=== PATIENT | male | born 1940 | race Caucasian/White ===

== ENCOUNTER 2020-01-06 14:20 | Inpatient (IN) | payer MEDICARE, MEDICAID ==
[~2020-01-06] VITALS: Ht 185.4 cm; Wt 100.0 kg
[~2020-01-06 14:20] MED LIST: MAGN400T28 PO
[2020-01-06 16:24] LABS: BASOPHILS % (AUTO) 0.5 % (0-1); EOSINOPHILS # (AUTO) 0.2 X10'3 (0-0.9); EOSINOPHILS % (AUTO) 2.8 % (0-6); HEMATOCRIT 42.8 % (42.0-52.0); HEMOGLOBIN 14.5 g/dl (14.0-17.9); LYMPHOCYTES # (AUTO) 1.8 X10'3 (1.1-4.8); LYMPHOCYTES % (AUTO) 29.4 % (21-51); MEAN CORPUSCULAR HEMOGLOBIN 33.9 PG (27.0-31.0); MEAN CORPUSCULAR HGB CONC 33.8 g/dL (33.0-36.5); MEAN CORPUSCULAR VOLUME 100.3 FL (78-98); MEAN PLATELET VOLUME 8.1 FL (7.4-10.4); MONOCYTES # (AUTO) 0.1 X10'3 (0-0.9); MONOCYTES % (AUTO) 1.9 % (2-12); NEUTROPHILS # (AUTO) 3.9 X10'3 (1.8-7.7); NEUTROPHILS % (AUTO) 65.4 % (42-75); PLATELET COUNT 169 X10'3 (140-440); RED BLOOD COUNT 4.26 X10'6 (4.70-6.10); RED CELL DISTRIBUTION WIDTH 13.6 % (11.5-14.5)
[2020-01-06 16:32] LABS: ALANINE AMINOTRANSFERASE 48 U/L (12-78); ALBUMIN 3.1 G/DL (3.4-5.0); ALBUMIN/GLOBULIN RATIO 1.1 (1.1-1.5); ALKALINE PHOSPHATASE 103 IU/L (46-116); ANION GAP 8 (8-16); ASPARTATE AMINO TRANSFERASE 34 U/L (10-37); BILIRUBIN,TOTAL 1.2 MG/DL (0.1-1.0); BLOOD UREA NITROGEN 14 MG/DL (7-18); BUN/CREATININE RATIO 15.7 (5.4-32.0); CALCIUM 7.9 MG/DL (8.5-10.1); CHLORIDE 107 MMOL/L (99-107); CREATININE 0.89 MG/DL (0.60-1.10); GLUCOSE 95 MG/DL (70-104); POTASSIUM 3.4 MMOL/L (3.5-5.1); SODIUM 141 MMOL/L (135-145); TOTAL CARBON DIOXIDE 25.7 MMOL/L (24-32); TOTAL PROTEIN 5.9 G/DL (6.4-8.2); eGFR 83 ML/MIN
[2020-01-06 16:37] LABS: TROPONIN I 0.13 NG/ML (0.0-0.05)
[2020-01-06] MEDS ORDERED: aspirin 81mg tab.chew PO ONE (17:05)
[2020-01-06] MEDS ORDERED: magnesium hydroxide 30ml (MOM) UD suspension PO PRN (17:40)
[2020-01-06] MEDS ORDERED: morphine 2 MG/ML inj. syringe IV PRN ×2 (17:40)
[2020-01-06] MEDS ORDERED: mag hydrox/Alum hydrox/simeth 30ml oral suspension PO PRN (17:40)
[2020-01-06] MEDS ORDERED: ondansetron/PF 4mg/2ml inj IV PRN (17:40)
[2020-01-06] MEDS ORDERED: acetaminophen 325mg tablet PO PRN (17:40)
--- NOTE | 2020-01-06 17:41 | NUR ---
Spoke to pt's family regarding pt condition and admission status of pt.
[2020-01-06] MEDS ORDERED: NO HOME MEDS (17:57)
[2020-01-06] MEDS: normal saline 1000ml 1,000 ML IV SCH (17:58)
[2020-01-06] MEDS ORDERED: heparin 10,000 units/1 ML INJ IV PRN (18:00)
[2020-01-06] MEDS ORDERED: heparin 10,000 units/1 ML INJ IV ONE (18:00)
[2020-01-06 18:32] LABS: PARTIAL THROMBOPLASTIN TIME 27 SECONDS (22-32)
[2020-01-06] MEDS: heparin 25,000 UNIT/250ml bag 250 ML IV SCH (19:13)
[2020-01-06] MEDS ORDERED: CITA20TA28 PO (19:29)
[2020-01-06] MEDS ORDERED: LOSA25TA96 PO (19:29)
[2020-01-06] MEDS ORDERED: PHEN-893 PO (19:29)
[2020-01-06] MEDS ORDERED: PSEU30CA2 (19:29)
[2020-01-06 19:30] VITALS: BP 133/57
[2020-01-06 22:00] VITALS: BP 147/72
[2020-01-06] MEDS ORDERED: LORazepam 2 mg/ml vial IV PRN (23:35)
[2020-01-07 01:58] LABS: ALBUMIN 3.3 G/DL (3.4-5.0); ANION GAP 7 (8-16); BLOOD UREA NITROGEN 13 MG/DL (7-18); BUN/CREATININE RATIO 14.1 (5.4-32.0); CALCIUM 8.5 MG/DL (8.5-10.1); CHLORIDE 106 MMOL/L (99-107); CREATININE 0.92 MG/DL (0.60-1.10); GLUCOSE 119 MG/DL (70-104); SODIUM 141 MMOL/L (135-145); TOTAL CARBON DIOXIDE 27.8 MMOL/L (24-32); eGFR 80 ML/MIN
[2020-01-07 02:00] VITALS: BP 153/77
[2020-01-07 02:08] LABS: BASOPHILS # (AUTO) 0.1 X10'3 (0-0.2); EOSINOPHILS # (AUTO) 0.3 X10'3 (0-0.9); EOSINOPHILS % (AUTO) 5.6 % (0-6); HEMATOCRIT 42.3 % (42.0-52.0); HEMOGLOBIN 14.4 g/dl (14.0-17.9); LYMPHOCYTES # (AUTO) 2.5 X10'3 (1.1-4.8); LYMPHOCYTES % (AUTO) 41.9 % (21-51); MEAN CORPUSCULAR VOLUME 100.3 FL (78-98); MEAN PLATELET VOLUME 8.1 FL (7.4-10.4); MONOCYTES # (AUTO) 0.5 X10'3 (0-0.9); MONOCYTES % (AUTO) 9.2 % (2-12); NEUTROPHILS # (AUTO) 2.5 X10'3 (1.8-7.7); NEUTROPHILS % (AUTO) 42.3 % (42-75); PLATELET COUNT 143 X10'3 (140-440); RED BLOOD COUNT 4.22 X10'6 (4.70-6.10); RED CELL DISTRIBUTION WIDTH 13.6 % (11.5-14.5)
[2020-01-07] MEDS: normal saline 1000ml 1,000 ML IV SCH ×2 (04:25→19:48)
--- NOTE | 2020-01-07 06:22 | NUR ---
Problems reprioritized. Patient report given, questions answered & plan of care reviewed with PAT RN.
[2020-01-07 06:30] VITALS: BP 161/83
[2020-01-07 12:00] VITALS: BP 160/89
[2020-01-07] MEDS ORDERED: iohexol 350MG/ML 100ml bottle IV ONE (12:33)
--- NOTE | 2020-01-07 13:16 | NUR ---
DR. MADSEN PAGED: PAGER ID: [phone] MESSAGE: [phone]: BEEM - FYI CTA CHEST (-) PE ACCE [id number]
[2020-01-07] MEDS ORDERED: CITA10TA9 PO (13:18)
[2020-01-07] MEDS ORDERED: LOSA100T57 PO (13:18)
[2020-01-07] MEDS ORDERED: regadenoson 0.4mg/5ml syringe IV PRN (14:25)
[2020-01-07] MEDS ORDERED: metoprolol tartrate 1mg/ml inj IV PRN (14:25)
[2020-01-07] MEDS ORDERED: nitroGLYCERIN 0.4mg SUBLingual tab SL PRN (14:25)
[2020-01-07] MEDS ORDERED: aminophylline 250mg/10ml inj. IV PRN (14:25)
[2020-01-07] MEDS ORDERED: hydrALAZINE 20mg/ml inj. IV PRN (14:50)
[2020-01-07 15:00] VITALS: BP 152/80
--- NOTE | 2020-01-07 15:00 | NUR ---
PATIENT'S B/P SYSTOLIC 170. APPRISED DR. MADSEN OF PATIENT'S B/P; ORDERS RECEIVED AND NOTED. LOSARTAN 100MG PO GIVEN PER ORDER. Addendum: 01/07/20 at 2036 by Rita Grey RN Amended: Links added.
[2020-01-07] MEDS: losartan 50mg tablet PO SCH (15:04)
[2020-01-07] MEDS: aspirin 81mg tablet.DR PO SCH (15:05)
[2020-01-07 16:37] LABS: CHOL/HDL RATIO 4.2 (0.00-4.99); CHOLESTEROL 173 MG/DL (0-200); HDL CHOLESTEROL 41 MG/DL (35-60); LDL CHOLESTEROL 105 MG/DL (50-100); TRIGLYCERIDES 134 MG/DL (20-135)
[2020-01-07 18:00] VITALS: BP 156/77
--- NOTE | 2020-01-07 18:00 | NUR ---
Patient in room MED 316. I have received report from SHWETA BOURGEOIS and had the opportunity to ask questions and assume patient care.
[2020-01-07] MEDS: heparin 25,000 UNIT/250ml bag 250 ML IV SCH (19:51)
--- NOTE | 2020-01-07 20:04 | NUR ---
PAGER ID: [phone] MESSAGE: [id number] EVONNE SHEPHERD HAS EXACERBATED NASAL CONGESTION. TAKES SUDAFED AT HOME OR BENEDRYL OR "FEI". THANKS
[2020-01-07] MEDS: carVEDilol 3.125mg tablet PO SCH (20:05)
[2020-01-07 22:00] VITALS: BP 142/82
[2020-01-07] MEDS: oxymetazoline 15 ML nasal spray NS SCH (22:01)
[2020-01-07] MEDS: diphenhydrAMINE 25mg capsule PO PRN (22:02)
[2020-01-08] VITALS (11 sets, daily range): BP systolic 130–162; BP diastolic 65–89
[2020-01-08] MEDS: normal saline 1000ml 1,000 ML IV SCH (00:38)
[2020-01-08 05:16] LABS: BASOPHILS # (AUTO) 0.1 X10'3 (0-0.2); BASOPHILS % (AUTO) 1.1 % (0-1); EOSINOPHILS # (AUTO) 0.4 X10'3 (0-0.9); EOSINOPHILS % (AUTO) 8.4 % (0-6); HEMATOCRIT 41.9 % (42.0-52.0); HEMOGLOBIN 14.2 g/dl (14.0-17.9); LYMPHOCYTES # (AUTO) 2.1 X10'3 (1.1-4.8); LYMPHOCYTES % (AUTO) 40.8 % (21-51); MEAN CORPUSCULAR HEMOGLOBIN 34.2 PG (27.0-31.0); MEAN CORPUSCULAR VOLUME 100.6 FL (78-98); MEAN PLATELET VOLUME 7.6 FL (7.4-10.4); MONOCYTES # (AUTO) 0.4 X10'3 (0-0.9); MONOCYTES % (AUTO) 8.2 % (2-12); NEUTROPHILS # (AUTO) 2.2 X10'3 (1.8-7.7); NEUTROPHILS % (AUTO) 41.5 % (42-75); PLATELET COUNT 144 X10'3 (140-440); RED BLOOD COUNT 4.16 X10'6 (4.70-6.10); RED CELL DISTRIBUTION WIDTH 13.4 % (11.5-14.5); WHITE BLOOD COUNT 5.2 X10'3 (4.5-11.0)
[2020-01-08] MEDS: heparin 25,000 UNIT/250ml bag 250 ML IV SCH (05:31)
[2020-01-08 05:33] LABS: ALBUMIN 3.4 G/DL (3.4-5.0); ANION GAP 7 (8-16); BLOOD UREA NITROGEN 10 MG/DL (7-18); BUN/CREATININE RATIO 11.1 (5.4-32.0); CALCIUM 8.6 MG/DL (8.5-10.1); CHLORIDE 107 MMOL/L (99-107); GLUCOSE 106 MG/DL (70-104); SODIUM 141 MMOL/L (135-145); TOTAL CARBON DIOXIDE 26.8 MMOL/L (24-32); eGFR 82 ML/MIN
--- NOTE | 2020-01-08 06:29 | NUR ---
Problems reprioritized. Patient report given, questions answered & plan of care reviewed with Ivonne BOURGEOIS.
[2020-01-08 07:52] LABS: MAGNESIUM 2.1 MG/DL (1.5-2.4)
[2020-01-08] MEDS: atorvastatin 20mg tablet PO SCH (08:00)
[2020-01-08] MEDS: carVEDilol 3.125mg tablet PO SCH ×2 (08:00→21:13)
[2020-01-08] MEDS: aspirin 81mg tablet.DR PO SCH (09:56)
[2020-01-08] MEDS: losartan 50mg tablet PO SCH (10:02)
--- NOTE | 2020-01-08 10:10 | NUR ---
Pt transported with Carmen BOURGEOIS from [facility] via Wheelchair and Heparin drip and iv fluids. Addendum: 01/08/20 at 1059 by Raz Kessler RN Amended: Links added.
--- NOTE | 2020-01-08 12:18 | NUR ---
DR. MADSEN PAGED PAGER ID: [phone] MESSAGE: 316: CORA - ED (+)darrin, CARDIO CONSULT? TY ACCE [id number]
--- NOTE | 2020-01-08 13:50 | NUR ---
DR. MADSEN PAGED: PAGER ID: [phone] MESSAGE: [phone]: BEEM - WANTS TO EAT, BUT DE RESULTS NEED CLARIFICATION. NURSE FRANTZ [id number]
[2020-01-08] MEDS: diphenhydrAMINE 25mg capsule PO PRN (17:55)
[2020-01-08] MEDS: oxymetazoline 15 ML nasal spray NS SCH (17:55)
--- NOTE | 2020-01-08 18:00 | NUR ---
Problems reprioritized. Patient report given, questions answered & plan of care reviewed with surjit Morales.
--- NOTE | 2020-01-08 18:22 | NUR ---
Patient in room MED 316. I have received report from Ivonne BOURGEOIS and had the opportunity to ask questions and assume patient care.
[2020-01-09 02:00] VITALS: BP 145/77
[2020-01-09 05:18] LABS: ALBUMIN 3.5 G/DL (3.4-5.0); ANION GAP 5 (8-16); BLOOD UREA NITROGEN 11 MG/DL (7-18); BUN/CREATININE RATIO 11.7 (5.4-32.0); CALCIUM 8.8 MG/DL (8.5-10.1); CHLORIDE 107 MMOL/L (99-107); CREATININE 0.94 MG/DL (0.60-1.10); GLUCOSE 114 MG/DL (70-104); SODIUM 139 MMOL/L (135-145); TOTAL CARBON DIOXIDE 26.9 MMOL/L (24-32); eGFR 78 ML/MIN
[2020-01-09 05:28] LABS: BASOPHILS % (AUTO) 0.8 % (0-1); EOSINOPHILS # (AUTO) 0.4 X10'3 (0-0.9); EOSINOPHILS % (AUTO) 6.9 % (0-6); HEMATOCRIT 41.9 % (42.0-52.0); HEMOGLOBIN 14.3 g/dl (14.0-17.9); LYMPHOCYTES # (AUTO) 1.9 X10'3 (1.1-4.8); LYMPHOCYTES % (AUTO) 35.6 % (21-51); MEAN CORPUSCULAR HEMOGLOBIN 34.2 PG (27.0-31.0); MEAN CORPUSCULAR HGB CONC 34.2 g/dL (33.0-36.5); MEAN PLATELET VOLUME 7.8 FL (7.4-10.4); MONOCYTES # (AUTO) 0.4 X10'3 (0-0.9); MONOCYTES % (AUTO) 7.9 % (2-12); NEUTROPHILS # (AUTO) 2.7 X10'3 (1.8-7.7); NEUTROPHILS % (AUTO) 48.8 % (42-75); PLATELET COUNT 152 X10'3 (140-440); RED BLOOD COUNT 4.19 X10'6 (4.70-6.10); RED CELL DISTRIBUTION WIDTH 13.3 % (11.5-14.5); WHITE BLOOD COUNT 5.4 X10'3 (4.5-11.0)
[2020-01-09 06:00] VITALS: BP 139/73
--- NOTE | 2020-01-09 06:30 | NUR ---
Problems reprioritized. Patient report given, questions answered & plan of care reviewed with Ivonne BOURGEOIS.
--- NOTE | 2020-01-09 07:02 | NUR ---
Patient in room MED 316. I have received report from surjit Morales and had the opportunity to ask questions and assume patient care.
[2020-01-09] MEDS: aspirin 81mg tablet.DR PO SCH (08:28)
[2020-01-09] MEDS: losartan 50mg tablet PO SCH (08:28)
[2020-01-09] MEDS: atorvastatin 20mg tablet PO SCH (08:28)
[2020-01-09] MEDS: carVEDilol 3.125mg tablet PO SCH (08:28)
[2020-01-09] MEDS ORDERED: COR3.125T PO (09:58)
[2020-01-09] MEDS ORDERED: ASPI-1071 PO (09:58)
[2020-01-09] MEDS ORDERED: ATOR20TA66 PO (09:58)
[2020-01-09 10:00] VITALS: BP 156/79
--- NOTE | 2020-01-09 13:30 | NUR ---
reviewed all discharge instructions,including need for f/u appts,prescriptions faxed to diana lugo @ [place] leela robledo from [facility],site clear.pt discharged home with all belongings via wheelchair
== END 2020-01-09 13:17 | disposition home or self-care (01) | DRG 204 ==
LOC: ER 14:21 → ED HOLD 17:39 → UNDOADMIN 17:41 → ED HOLD 17:41 → MED 3N 19:42 → ED HOLD 19:42
PROVIDERS: ADMIT Family Medicine; ATTEND Family Medicine
PROC: 4A02XM4 Measurement of Cardiac Total Activity, External Approach (ICD-10-PCS; principal; 2020-01-08)
PROC: 3E033HZ Introduction of Radioactive Substance into Peripheral Vein, Percutaneous Approach (ICD-10-PCS; 2020-01-08)
DX: R06.02 Shortness of breath (principal); R79.89 Other specified abnormal findings of blood chemistry; E78.5 Hyperlipidemia, unspecified; F41.9 Anxiety disorder, unspecified; I10 Essential (primary) hypertension; I45.10 Unspecified right bundle-branch block; K21.9 Gastro-esophageal reflux disease without esophagitis; Z87.11 Personal history of peptic ulcer disease
CPT/HCPCS: 36415; 71275; 78452; 80048; 80053; 80061; 83735; 83880; 84484; 85025; 85610; 85730; 87081; 93005; 93017; 93306; 99285; A9500; G0378; J1644; J2060; J2785; J7030; Q0163; Q9967

== ENCOUNTER 2020-03-13 06:15 | Day surgery (SDC) | payer MEDICARE, MEDICAID ==
[2020-03-07 13:58] LABS: BASOPHILS # (AUTO) 0.1 X10'3 (0-0.2); BASOPHILS % (AUTO) 0.8 % (0-1); EOSINOPHILS # (AUTO) 0.5 X10'3 (0-0.9); EOSINOPHILS % (AUTO) 5.3 % (0-6); LYMPHOCYTES # (AUTO) 2.8 X10'3 (1.1-4.8); LYMPHOCYTES % (AUTO) 30.4 % (21-51); MEAN CORPUSCULAR HEMOGLOBIN 34.4 PG (27.0-31.0); MEAN CORPUSCULAR HGB CONC 34.5 g/dL (33.0-36.5); MEAN CORPUSCULAR VOLUME 99.7 FL (78-98); MEAN PLATELET VOLUME 7.6 FL (7.4-10.4); MONOCYTES # (AUTO) 0.7 X10'3 (0-0.9); MONOCYTES % (AUTO) 7.4 % (2-12); NEUTROPHILS # (AUTO) 5.1 X10'3 (1.8-7.7); NEUTROPHILS % (AUTO) 56.1 % (42-75); PRE OP HEMATOCRIT 44.8 % (42.0-52.0); PRE OP HEMOGLOBIN 15.5 g/dL (14.0-17.9); PRE OP PLATELET COUNT 216 X10'3 (140-440); RED BLOOD COUNT 4.49 X10'6 (4.70-6.10); RED CELL DISTRIBUTION WIDTH 12.9 % (11.5-14.5)
[2020-03-07 14:11] LABS: PRE OP INR 1.1 INR; PRE OP PROTIME 10.9 SECONDS (9.0-12.0)
[2020-03-07 14:15] LABS: ALBUMIN/GLOBULIN RATIO 1.1 (1.1-1.5); ALKALINE PHOSPHATASE 131 IU/L (46-116); BLOOD UREA NITROGEN 16 MG/DL (7-18); BUN/CREATININE RATIO 19.3 (5.4-32.0); CHLORIDE 103 MMOL/L (99-107); CREATININE 0.83 MG/DL (0.60-1.10); PRE OP ALT 50 U/L (30-65); PRE OP ANION GAP 9 (8-16); PRE OP AST 27 U/L (10-37); PRE OP BILIRUB, TOTAL 0.7 MG/DL (0.0-1.0); PRE OP GLUCOSE 96 MG/DL (70-104); PRE OP POTASSIUM 4.3 MMOL/L (3.4-5.1); PRE OP SODIUM 136 MMOL/L (135-145); TOTAL CARBON DIOXIDE 24.1 MMOL/L (24-32); TOTAL PROTEIN 7.7 G/DL (6.4-8.2); eGFR 90 ML/MIN
[2020-03-07 15:26] LABS: PLATELET FUNCTION (ADP) 127 SECONDS (63-104)
[2020-03-13] VITALS (24 sets, daily range): BP systolic 136–180; BP diastolic 75–99
[~2020-03-13] VITALS: Ht 185.4 cm; Wt 95.0 kg
[~2020-03-13 06:15] MED LIST changes: +ACET-2119 PO; +CLOT15CR73 TP; +IRON PO; +LORA5TAB9 PO; +LOSA100T57 PO; -MAGN400T28 PO; +NAS0.025NS NS; +NIAC500C12 PO; +ROPI0.252 PO; +SODI30SP3 BOTHNARES; +[UNRECOGNIZED DRUG - OTHER] NS; +famotidine 20mg tablet PO ONE; +ringers solution, lacted 1,000 ML IV SCH
[2020-03-13] MEDS ORDERED: LIDOcaine 1% (10mg/ml) 2ml vial ONE (06:45)
[2020-03-13] MEDS ORDERED: oxymetazoline 15 ML nasal spray NS ONE ×2 (06:48→07:00)
[2020-03-13] MEDS ORDERED: cocaine 4% topical solution 4ml bottle ONE (06:48)
[2020-03-13] MEDS ORDERED: bacitracin 15gm ointment TP ONE (06:48)
[2020-03-13] MEDS ORDERED: methylPREDNISolone acetate 80mg/ml inj**IM only ONE (06:52)
[2020-03-13] MEDS ORDERED: cefTAZidime 1gm inj ONE (06:52)
[2020-03-13] MEDS ORDERED: LIDOcaine 1% w/epiNEPHrine 1:200,000 30ml vial ONE (06:52)
[2020-03-13] MEDS ORDERED: BUPIVAcaine 0.5% W/EPI /PF 30ml vial ONE (06:55)
[2020-03-13] MEDS ORDERED: ringers solution, lacted 1,000 ML IV SCH (06:55)
[2020-03-13] MEDS ORDERED: morphine 2 MG/ML inj. syringe IV PRN (06:55)
[2020-03-13] MEDS ORDERED: ondansetron/PF 4mg/2ml inj IV PRN (06:55)
[2020-03-13] MEDS ORDERED: fentaNYL/PF 50MCG/1 ML 2ML syringe IV PRN ×2 (06:55)
[2020-03-13] MEDS ORDERED: LIDOcaine 1% W/epiNEPHrine 1:100,000 20ml vial ONE (07:18)
[2020-03-13] MEDS ORDERED: midazolam 2 mg/2 ml injection ONE ×2 (07:53)
[2020-03-13] MEDS ORDERED: fentaNYL/PF 50MCG/1 ML 2ML syringe ONE (07:53)
[2020-03-13] MEDS ORDERED: propofol inj 20 ML IV ONE (07:57)
[2020-03-13] MEDS ORDERED: LIDOcaine 2% (20mg/ml) 5ml vial ONE (07:57)
[2020-03-13] MEDS ORDERED: sevoflurane 250ml liquid IH ONE (08:06)
[2020-03-13] MEDS ORDERED: ondansetron/PF 4mg/2ml inj ONE (08:24)
[2020-03-13] MEDS ORDERED: dexamethasone sod phosphate 4mg/ml inj. ONE (08:24)
[2020-03-13] MEDS ORDERED: ePHEDrine 50MG/ML INJ. ONE (08:38)
[2020-03-13] MEDS ORDERED: labetalol 20mg/4ml (5mg/ml) syringe IV ONE (10:08)
[2020-03-13] MEDS: labetalol 20mg/4ml (5mg/ml) syringe IV PRN ×3 (10:30→11:06)
--- NOTE | 2020-03-13 10:34 | NUR ---
Received from OR via , accompanied by Anesthesiologist DR FREEMAN and report given by Anesthesiolgist. PT RESPONDING TO VOICE, SKIN WARM AND PINK, NO C/O PAIN, BILAT COTTONOIDS IN PLACE, PIV RIGHT AC 20G PATENT WITH LR 100ML/HR, HTN ON ADMIT. LABATOLOL GIVEN PER DR FREEMAN'S ORDERS.
--- NOTE | 2020-03-13 11:00 | NUR ---
PT'S SBP STILL ABOVE 150. ALL 3 DOSES OF LABATOLOL GIVEN. WILL GIVE MORPHINE FOR PAIN. HAVE NOT REMOVED COTTONOIDS DUE TO INCREASED BP.
--- NOTE | 2020-03-13 11:00 | NUR ---
PT'S SBP STILL ABOVE 150. GI ALL 3 DOSES OF LABATOLOL.
[2020-03-13] MEDS: morphine 4 MG/ML inj SYRINge IV PRN ×2 (11:05→11:29)
[2020-03-13] MEDS ORDERED: salt irrigation nasal spray 45 ML SPRAY NS PRN (11:10)
--- NOTE | 2020-03-13 11:27 | NUR ---
MOST RECENT BP 161/88. WILL GIVE DOSE OF MORPHINE FOR PAIN AND ASSESS IF THAT BRINGS BP INTO DESIRED RANGE.
[2020-03-13] MEDS: hydrALAZINE 20mg/ml inj. IV PRN ×2 (11:37→12:20)
--- NOTE | 2020-03-13 11:50 | NUR ---
CALLED DR WADE TO ADDRESS BP, RED DRAINAGE FROM RIGHT NARE AND PULLING OF COTTONOIDS. HE IS NOT ANSWERING. LEFT TO CALL RN AT [facility].
--- NOTE | 2020-03-13 12:18 | NUR ---
DR WADE RETURNED CALL. CALLED DR FREEMAN PER SHERI'S REQUEST. WILL FOLLOW UP IN ONE HOUR.
--- NOTE | 2020-03-13 12:45 | NUR ---
BP PRESSURE HAS NORMALIZED. UPDATED DR WADE AND GOT RECEIVED APPROVAL TO REMOVE COTTONOIDS AND DISCHARGE PATIENT HOME.
--- NOTE | 2020-03-13 14:12 | NUR ---
PT MEETS DISCHARGE CRITERIA. PT HAD COTTONOIDS REMOVED, SMALL AMOUNT OF DRAINAGE FROM BILAT NARES, NASAL DRESSING IN PLACE. PT SENT HOME WITH EXTRA 4X4 TO PLACE IN NASAL DRESSING WHEN SOILED, UP TO BATHROOM TO VOID, IV REMOVED, VSS, REVIEWED DISCHARGE INSTRUCTIONS WITH PATIENT AND FAMILY. WRITTEN INSTRUCTIONS SENT HOME WITH PT.
== END 2020-03-13 14:12 | disposition home or self-care (01) ==
LOC: PAS 06:15
PROVIDERS: ATTEND Otolaryngology
DX: J01.80 Other acute sinusitis (principal); J34.89 Other specified disorders of nose and nasal sinuses; J33.8 Other polyp of sinus; I10 Essential (primary) hypertension; F41.9 Anxiety disorder, unspecified; M19.90 Unspecified osteoarthritis, unspecified site; G25.81 Restless legs syndrome; Z20.828 Contact with and (suspected) exposure to other viral communicable diseases; Z98.890 Other specified postprocedural states; Z88.8 Allergy status to other drugs, medicaments and biological substances; Z79.01 Long term (current) use of anticoagulants; Z79.899 Other long term (current) drug therapy
CPT/HCPCS: 30140; 31240; 31253; 31254; 31256; 31259; 31267; 36415; 61782; 70486; 80053; 82948; 85025; 85576; 85610; 85730; 87070; 87075; 87102; 87635; A6402; C1726; C9250; C9803; J0360; J0713; J1040; J1100; J2001; J2250; J2270; J2405; J2704; J3010; J7040; J7120; A4618; A7000; J3490

== ENCOUNTER 2020-08-09 20:30 | Observation (INO) | payer MEDICARE, MEDICAID ==
[~2020-08-09] VITALS: Ht 185.4 cm; Wt 101.8 kg
[~2020-08-09 20:30] MED LIST changes: -NAS0.025NS NS; -famotidine 20mg tablet PO ONE; -ringers solution, lacted 1,000 ML IV SCH
[2020-08-09 20:50] LABS: BASOPHILS % (AUTO) 0.2 % (0-1); EOSINOPHILS # (AUTO) 0.3 X10'3 (0-0.9); EOSINOPHILS % (AUTO) 4.4 % (0-6); HEMATOCRIT 39.3 % (42.0-52.0); HEMOGLOBIN 13.3 g/dl (14.0-17.9); LYMPHOCYTES # (AUTO) 3.1 X10'3 (1.1-4.8); LYMPHOCYTES % (AUTO) 42.5 % (21-51); MEAN CORPUSCULAR HGB CONC 33.8 g/dL (33.0-36.5); MEAN CORPUSCULAR VOLUME 100.6 FL (78-98); MEAN PLATELET VOLUME 8.2 FL (7.4-10.4); MONOCYTES # (AUTO) 0.6 X10'3 (0-0.9); MONOCYTES % (AUTO) 7.7 % (2-12); NEUTROPHILS # (AUTO) 3.3 X10'3 (1.8-7.7); NEUTROPHILS % (AUTO) 45.2 % (42-75); PLATELET COUNT 141 X10'3 (140-440); RED BLOOD COUNT 3.91 X10'6 (4.70-6.10); RED CELL DISTRIBUTION WIDTH 12.9 % (11.5-14.5); WHITE BLOOD COUNT 7.2 X10'3 (4.5-11.0)
[2020-08-09 21:02] LABS: ALANINE AMINOTRANSFERASE 51 U/L (12-78); ALBUMIN 3.1 G/DL (3.4-5.0); ALBUMIN/GLOBULIN RATIO 1.2 (1.1-1.5); ALKALINE PHOSPHATASE 108 IU/L (46-116); ANION GAP 12 (8-16); ASPARTATE AMINO TRANSFERASE 32 U/L (10-37); BILIRUBIN,TOTAL 0.4 MG/DL (0.1-1.0); BLOOD UREA NITROGEN 14 MG/DL (7-18); BUN/CREATININE RATIO 19.2 (5.4-32.0); CALCIUM 7.6 MG/DL (8.5-10.1); CHLORIDE 107 MMOL/L (99-107); CREATININE 0.73 MG/DL (0.60-1.10); GLUCOSE 124 MG/DL (70-104); POTASSIUM 3.5 MMOL/L (3.5-5.1); SODIUM 142 MMOL/L (135-145); TOTAL CARBON DIOXIDE 23.1 MMOL/L (24-32); TOTAL PROTEIN 5.6 G/DL (6.4-8.2); eGFR > 90 ML/MIN
[2020-08-09] MEDS ORDERED: ondansetron/PF 4mg/2ml inj IV ONE (21:10)
[2020-08-09] MEDS ORDERED: morphine 4 MG/ML inj SYRINge IV ONE (21:10)
--- NOTE | 2020-08-09 21:36 | NUR ---
One time orders of Zolfran and Morphine given as intervention for pain and nausea. Pt stated he felt increased lightheadness and feet sensation after administration. Nurse remained at bedside and gave cooling wash cloth to help aleviate discomfort.
--- NOTE | 2020-08-09 22:57 | NUR ---
JEFRY COOK AT BEDSIDE TO UPDATE PT ON PLAN OF CARE. HE REPORTS PT OK TO HAVE WATER. PT GIVEN STYROFOAM CUP OF WATER, NOT A PITCHER, HE REPORTS HE IS ALLERGIC TO MANY PLASTICS. PT A&OX4 AND POLITE AND APPROPRIATE.
[2020-08-09] MEDS ORDERED: LIDOcaine Viscous 15ml cup MM PRN (23:10)
[2020-08-09] MEDS ORDERED: mag hydrox/Alum hydrox/simeth 30ml oral suspension PO ONE (23:10)
--- NOTE | 2020-08-09 23:25 | NUR ---
patient states his lips feel swollen, no obvious swelling notes, will continue to monitor.
--- NOTE | 2020-08-09 23:35 | NUR ---
Pt stating that he is experiencing a swollen tongue, lip, and back of throat. Pt states that he has never had morphine before. MD aware and is ordering Benadryl and Decadron. Will continue to closely monitor.
[2020-08-09] MEDS ORDERED: dexamethasone sod phosphate 10mg/ml inj IV STA (23:37)
[2020-08-09] MEDS ORDERED: diphenhydrAMINE 50 mg/ml inj IV ONE (23:40)
[2020-08-10] VITALS (11 sets, daily range): BP systolic 116–152; BP diastolic 65–84
[2020-08-10] MEDS ORDERED: metoclopramide 5 mg/ml inj IV ONE
[2020-08-10] MEDS ORDERED: potassium Cl 20 mEq SR tablet PO PRN ×2 (00:05)
[2020-08-10] MEDS ORDERED: proCHLORperazine 10 MG/2 ml inj IV PRN (00:05)
[2020-08-10] MEDS ORDERED: magnesium 2GM in 50ml NS 50 ML IV PRN (00:05)
[2020-08-10] MEDS ORDERED: potassium Cl 40MEQ/1/2NS 520ml 520 ML IV PRN ×2 (00:05)
[2020-08-10] MEDS ORDERED: mag hydrox/Alum hydrox/simeth 30ml oral suspension PO PRN (00:05)
[2020-08-10] MEDS ORDERED: nitroGLYCERIN 0.4mg SUBLingual tab SL PRN ×3 (00:05→05:05)
[2020-08-10] MEDS ORDERED: magnesium 4gm in 100ml NS 100 ML IV PRN (00:05)
[2020-08-10] MEDS ORDERED: magnesium hydroxide 30ml (MOM) UD suspension PO PRN (00:05)
[2020-08-10] MEDS ORDERED: acetaminophen 325mg tablet PO PRN (00:05)
[2020-08-10] MEDS ORDERED: magnesium Cl slow-release 64mg tablet PO PRN (00:05)
[2020-08-10] MEDS ORDERED: hydrALAZINE 20mg/ml inj. IV PRN (00:10)
--- NOTE | 2020-08-10 00:49 | NUR ---
REPORT RECEIVED FROM ALEX BOURGEOIS IN ER. PATIENT ON THEN TO THE FLOOR.
--- NOTE | 2020-08-10 00:49 | NUR ---
ED in room 3 to be transferred PCU 3013. Report given to CHRISTELLE Cho.
[2020-08-10] MEDS ORDERED: FLUT16SP20 NAS (01:04)
[2020-08-10] MEDS ORDERED: CITA10TA9 PO (01:04)
[2020-08-10] MEDS ORDERED: ALBU90AE2 INH (01:04)
[2020-08-10] MEDS ORDERED: FERR-119 PO (01:04)
[2020-08-10] MEDS ORDERED: regadenoson 0.4mg/5ml syringe IV PRN (05:05)
[2020-08-10] MEDS ORDERED: metoprolol tartrate 1mg/ml inj IV PRN (05:05)
[2020-08-10] MEDS ORDERED: aminophylline 250mg/10ml inj. IV PRN (05:05)
--- NOTE | 2020-08-10 06:09 | NUR ---
Patient in room PCU 3013. I have received report from CHRISTELLE Cho and had the opportunity to ask questions and assume patient care.
--- NOTE | 2020-08-10 06:10 | NUR ---
Patient in room PCU 3013. I have received report from Tammie BOURGEOIS and had the opportunity to ask questions and assume patient care.
--- NOTE | 2020-08-10 06:29 | NUR ---
Problems reprioritized. Patient report given, questions answered & plan of care reviewed with TYREE/ALEX BOURGEOIS.
[2020-08-10] MEDS ORDERED: aspirin 81mg tab.chew PO SCH (08:00)
[2020-08-10] MEDS ORDERED: K and/or MAG REPLACEMENT MC SCH (08:00)
[2020-08-10] MEDS ORDERED: CITALOpram 10mg tablet PO SCH (08:00)
--- NOTE | 2020-08-10 10:37 | NUR ---
Paged MD [place] per her request: PAGER ID: [phone] MESSAGE: Re: Neville Marion; Room 3013A. Pt is back from his lexiscan. CHRISTELLE Johnston U [phone]
[2020-08-10] MEDS ORDERED: AMLO5TAB16 PO (16:22)
--- NOTE | 2020-08-10 17:30 | NUR ---
orientee documentation: I have reviewed and agree with all interventions, assessments performed and documented by Vickie Lewis RN.
--- NOTE | 2020-08-10 17:30 | NUR ---
Pt was d/c'd at 1730. All d/c ppwk was reviewed and pt was able to ask questions and get answers. New medication was called into [facility] on [address]. PIV & tele # [phone] was removed from pt and pt tolerated well. Pt was transported downstairs in W/C and picked up by son via truck.
[2020-08-10] MEDS ORDERED: non-formulary drug (Losartan Potassium 1 TAB) PO SCH (21:00)
--- NOTE | 2020-08-13 10:40 | NUR ---
CASE MANAGEMENT DISCHARGE FOLLOW UP: T/c to pt, no answer, left message requesting callback. Addendum: 08/13/20 at 1126 by Carolina Mohr RN [id number] Received voicemail from pt while on the line with another patient. 1124 T/c to pt, no answer, left voicemail. Addendum: 08/14/20 at 1200 by Carolina Mohr RN 08/14@0800 Received voicemail from patient left yesterday afternoon. Will t/c to pt later this morning. 1149 T/c to pt. Pt reports that he is doing well; denies chest pain, nausea. Pt states that he has some minor dizziness off and on, advised to notify PCP. Pt states SBP this AM before BP medications was 170, HR 65. Advised pt to recheck BP as medications could possibly be working to well, advised to notify PCP if SBP less than 100 or HR below 65, pt verbalizes understanding. Verbalizes understanding of s/sx requiring further evaluation/emergent assistance. Verbalizes understanding of new and current medications. Verbalizes compliance with MD discharge instructions. Verbalizes understanding of the importance in making/keeping follow-up appointments, has f/u scheduled with MD. States no further questions/concerns at this time. 1153 Received t/c from pt, states BP is 140/73, HR is 70. Pt states no further needs/questions at this time and will f/u with PCP or contact EMS if symptoms return/worsen.
== END 2020-08-10 17:35 | disposition home or self-care (01) ==
LOC: ER 20:30 → ED HOLD 08-10 00:03 → PCU 3S 08-10 01:15
PROVIDERS: ADMIT Family Medicine; ATTEND Family Medicine
DX: R07.89 Other chest pain (principal); I10 Essential (primary) hypertension; F41.9 Anxiety disorder, unspecified; G25.81 Restless legs syndrome; G89.29 Other chronic pain; M54.2 Cervicalgia; J32.9 Chronic sinusitis, unspecified; T78.40XA Allergy, unspecified, initial encounter; Z79.899 Other long term (current) drug therapy; Z88.8 Allergy status to other drugs, medicaments and biological substances; X58.XXXA Exposure to other specified factors, initial encounter; Y92.89 Other specified places as the place of occurrence of the external cause
CPT/HCPCS: 36415; 71045; 78452; 80053; 83880; 84484; 85025; 87081; 93005; 93017; 93306; 96374; 96375; 99285; A9500; G0378; J1100; J1200; J2270; J2405; J2765; J2785

== ENCOUNTER 2020-09-10 11:05 | Emergency (ER) | payer MEDICARE, MEDICAID ==
[~2020-09-10] VITALS: Ht 186.7 cm; Wt 99.1 kg
[~2020-09-10 11:05] MED LIST changes: +ALBU90AE2 INH; +AMLO5TAB16 PO; +CITA10TA9 PO; +FERR-119 PO; +FLUT16SP20 NAS; -IRON PO; -LORA5TAB9 PO; -NIAC500C12 PO; -[UNRECOGNIZED DRUG - OTHER] NS
[2020-09-10 11:25] VITALS: BP 138/79
[2020-09-10] MEDS ORDERED: clindamycin 600mg/D5W 50ml 50 ML IV ONE (11:40)
[2020-09-10 12:05] LABS: BASOPHILS # (AUTO) 0.1 X10'3 (0-0.2); EOSINOPHILS # (AUTO) 0.3 X10'3 (0-0.9); EOSINOPHILS % (AUTO) 4.5 % (0-6); HEMATOCRIT 41.6 % (42.0-52.0); HEMOGLOBIN 14.6 g/dl (14.0-17.9); LYMPHOCYTES # (AUTO) 2.3 X10'3 (1.1-4.8); LYMPHOCYTES % (AUTO) 37.2 % (21-51); MEAN CORPUSCULAR HEMOGLOBIN 34.4 PG (27.0-31.0); MEAN CORPUSCULAR HGB CONC 35.1 g/dL (33.0-36.5); MEAN PLATELET VOLUME 7.7 FL (7.4-10.4); MONOCYTES # (AUTO) 0.5 X10'3 (0-0.9); MONOCYTES % (AUTO) 7.8 % (2-12); NEUTROPHILS # (AUTO) 3.1 X10'3 (1.8-7.7); NEUTROPHILS % (AUTO) 49.5 % (42-75); PLATELET COUNT 173 X10'3 (140-440); RED BLOOD COUNT 4.25 X10'6 (4.70-6.10); RED CELL DISTRIBUTION WIDTH 12.9 % (11.5-14.5); WHITE BLOOD COUNT 6.3 X10'3 (4.5-11.0)
[2020-09-10 12:29] LABS: ALANINE AMINOTRANSFERASE 70 U/L (12-78); ALBUMIN 3.7 G/DL (3.4-5.0); ALBUMIN/GLOBULIN RATIO 1.2 (1.1-1.5); ALKALINE PHOSPHATASE 101 IU/L (46-116); ANION GAP 9 (8-16); ASPARTATE AMINO TRANSFERASE 38 U/L (10-37); BILIRUBIN,TOTAL 0.7 MG/DL (0.1-1.0); BLOOD UREA NITROGEN 13 MG/DL (7-18); BUN/CREATININE RATIO 14.9 (5.4-32.0); CHLORIDE 104 MMOL/L (99-107); CREATININE 0.87 MG/DL (0.60-1.10); GLUCOSE 112 MG/DL (70-104); LIPASE 72 U/L (73-393); POTASSIUM 4.1 MMOL/L (3.5-5.1); SODIUM 138 MMOL/L (135-145); TOTAL PROTEIN 6.9 G/DL (6.4-8.2); eGFR 85 ML/MIN
[2020-09-10] MEDS ORDERED: iohexol 300mg/ml 100ml inj. ONE (13:25)
[2020-09-10] MEDS ORDERED: CLIN300C70 PO (14:08)
== END 2020-09-10 14:54 | disposition home or self-care (01) ==
LOC: ER 11:06
DX: K04.7 Periapical abscess without sinus (principal); J02.9 Acute pharyngitis, unspecified; I10 Essential (primary) hypertension; G89.29 Other chronic pain; Z72.89 Other problems related to lifestyle; Z88.2 Allergy status to sulfonamides; Z88.8 Allergy status to other drugs, medicaments and biological substances; Z79.2 Long term (current) use of antibiotics; Z79.899 Other long term (current) drug therapy
CPT/HCPCS: 36415; 70491; 80053; 83605; 83690; 84145; 85025; 87040; 96365; 99285; Q9967; J3490

== ENCOUNTER 2021-01-29 10:15 | Emergency (ER) | payer MEDICARE, MEDICAID ==
[~2021-01-29] VITALS: Ht 188 cm; Wt 102.3 kg
[2021-01-29 10:45] VITALS: BP 139/76
== END 2021-01-29 12:07 | disposition home or self-care (01) ==
LOC: ER 10:15
DX: B34.9 Viral infection, unspecified (principal); Z20.822 Contact with and (suspected) exposure to COVID-19; I10 Essential (primary) hypertension; G89.29 Other chronic pain; Z72.89 Other problems related to lifestyle
CPT/HCPCS: 71045; 87635; 99284; C9803; 99283

== ENCOUNTER 2021-11-24 22:44 | Emergency (ER) | payer MEDICARE, MEDICAID ==
[~2021-11-24] VITALS: Ht 188 cm; Wt 102.3 kg
[~2021-11-24 22:44] MED LIST changes: -CITA10TA9 PO; +CITA10TA93 PO
[2021-11-24 23:02] VITALS: BP 153/75
[2021-11-24 23:21] LABS: BASOPHILS # (AUTO) 0.1 X10'3 (0-0.2); BASOPHILS % (AUTO) 0.9 % (0-1); EOSINOPHILS # (AUTO) 0.5 X10'3 (0-0.9); EOSINOPHILS % (AUTO) 6.9 % (0-6); HEMATOCRIT 41.8 % (42.0-52.0); HEMOGLOBIN 14.3 g/dl (14.0-17.9); LYMPHOCYTES # (AUTO) 3.1 X10'3 (1.1-4.8); MEAN CORPUSCULAR HEMOGLOBIN 33.9 PG (27.0-31.0); MEAN CORPUSCULAR HGB CONC 34.1 g/dL (33.0-36.5); MEAN CORPUSCULAR VOLUME 99.2 FL (78-98); MEAN PLATELET VOLUME 7.8 FL (7.4-10.4); MONOCYTES # (AUTO) 0.7 X10'3 (0-0.9); MONOCYTES % (AUTO) 8.6 % (2-12); NEUTROPHILS # (AUTO) 3.2 X10'3 (1.8-7.7); NEUTROPHILS % (AUTO) 42.6 % (42-75); PLATELET COUNT 178 X10'3 (140-440); RED BLOOD COUNT 4.22 X10'6 (4.70-6.10); RED CELL DISTRIBUTION WIDTH 13.2 % (11.5-14.5); WHITE BLOOD COUNT 7.5 X10'3 (4.5-11.0)
[2021-11-24 23:33] LABS: ALANINE AMINOTRANSFERASE 55 U/L (12-78); ALBUMIN 3.5 G/DL (3.4-5.0); ALBUMIN/GLOBULIN RATIO 1.2 (1.1-1.5); ALKALINE PHOSPHATASE 146 IU/L (46-116); ANION GAP 4 (8-16); ASPARTATE AMINO TRANSFERASE 33 U/L (10-37); BILIRUBIN,TOTAL 0.7 MG/DL (0.1-1.0); BLOOD UREA NITROGEN 19 MG/DL (7-18); BUN/CREATININE RATIO 20.2 (5.4-32.0); CALCIUM 8.4 MG/DL (8.5-10.1); CHLORIDE 103 MMOL/L (99-107); CREATININE 0.94 MG/DL (0.60-1.10); GLUCOSE 118 MG/DL (70-104); POTASSIUM 4.2 MMOL/L (3.5-5.1); SODIUM 135 MMOL/L (135-145); TOTAL CARBON DIOXIDE 28.5 MMOL/L (24-32); TOTAL PROTEIN 6.4 G/DL (6.4-8.2); eGFR 77 ML/MIN
== END 2021-11-25 02:19 | disposition left against medical advice (07) ==
LOC: ER 22:45
DX: R07.9 Chest pain, unspecified (principal); Z53.21 Procedure and treatment not carried out due to patient leaving prior to being seen by health care provider
CPT/HCPCS: 36415; 71045; 80053; 83880; 84484; 85025; 93005

== ENCOUNTER 2024-09-15 07:11 | Day surgery (SDC) | payer MEDICARE, MEDICAID ==
[~2024-09-15] VITALS: Ht 188 cm; Wt 190.0 kg
[~2024-09-15 07:11] MED LIST changes: -ALBU90AE2 INH; +ALBU90AE3 INH; -AMLO5TAB16 PO; +BISA-78 PO; +BUPR100T13 PO; -CITA10TA93 PO; -CLOT15CR73 TP; +DIPH25CA83 PO; -FERR-119 PO; -FLUT16SP20 NAS; -LOSA100T57 PO; +METO25TA6 PO; -ROPI0.252 PO; +ROPI0.5T37 PO
[2024-09-15 07:42] VITALS: BP 148/72; PULSE 75; RESP 18; TEMP 97.3
[2024-09-15] MEDS ORDERED: propofol inj 20 ML IV ONE (07:54)
[2024-09-15] MEDS ORDERED: LIDOcaine 2% (20mg/ml) 5ml vial ONE (07:55)
[2024-09-15] MEDS ORDERED: LIDOcaine 2% Viscous 15ml cup ONE (08:50)
[2024-09-15 09:21] VITALS: BP 135/77; PULSE 70; RESP 21; O2SAT 99
[2024-09-15 09:30] VITALS: BP 135/79; PULSE 68; RESP 16; O2SAT 98
[2024-09-15 09:40] VITALS: BP 135/79; PULSE 68; RESP 17; O2SAT 93
[2024-09-15 09:50] VITALS: BP 140/75; PULSE 69; RESP 17; O2SAT 92
== END 2024-09-15 10:15 ==
LOC: GI LAB 07:11
PROVIDERS: ATTEND Internal Medicine Gastroenterology
DX: R13.10 Dysphagia, unspecified (principal); K31.89 Other diseases of stomach and duodenum; R11.0 Nausea; R63.4 Abnormal weight loss; I10 Essential (primary) hypertension; E78.5 Hyperlipidemia, unspecified; Z88.2 Allergy status to sulfonamides; Z88.8 Allergy status to other drugs, medicaments and biological substances; Z91.040 Latex allergy status
CPT/HCPCS: 43239; 88305; A4620; J2003; J2704; J7030; Z7512

== ENCOUNTER 2024-12-08 08:05 | Day surgery (SDC) | payer MEDICARE, OTHER, MEDICAID ==
[~2024-12-08] VITALS: Ht 188 cm; Wt 97.7 kg
[~2024-12-08 08:05] MED LIST changes: -BISA-78 PO; +BUPR-726 PO; -BUPR100T13 PO; +BUSP5TAB3 PO; +FLUT16SP2 BOTHNARES; +LOSA100T58 PO; +OMEP20CA16 PO; +ONDA-243 PO; +PSYL575P22 PO
[2024-12-08 08:51] VITALS: BP 129/69; PULSE 108; RESP 14
[2024-12-08] MEDS ORDERED: propofol inj 20 ML IV ONE (10:16)
[2024-12-08] MEDS ORDERED: midazolam 1 mg/ML 2ml injection ONE (10:30)
[2024-12-08 10:36] VITALS: BP 99/53; PULSE 79; RESP 15; O2SAT 97
[2024-12-08 10:46] VITALS: BP 112/61; PULSE 114; RESP 18; O2SAT 97
[2024-12-08 10:56] VITALS: BP 112/61; PULSE 114; RESP 18; O2SAT 94
[2024-12-08 11:06] VITALS: BP 118/66; PULSE 94; RESP 18; O2SAT 94
== END 2024-12-08 11:12 | disposition home or self-care (01) ==
LOC: GI LAB 08:05
PROVIDERS: ATTEND Internal Medicine Gastroenterology
DX: R13.10 Dysphagia, unspecified (principal); R11.0 Nausea; I48.91 Unspecified atrial fibrillation; I10 Essential (primary) hypertension; Z88.2 Allergy status to sulfonamides; Z79.899 Other long term (current) drug therapy
CPT/HCPCS: 43239; A4620; J2250; J2704; J7030; Z7512; 88305; 88342